=== PATIENT | female | born 1975 | race Two or more races ===

== ENCOUNTER 2017-11-14 12:08 | Outpatient (CLI) | payer OTHER | END 2017-11-14 15:00 | disposition home or self-care (01) | LOC: LAB 12:08 | DX: R10.84 Generalized abdominal pain (principal); K52.9 Noninfective gastroenteritis and colitis, unspecified ==

== ENCOUNTER 2017-11-14 13:03 | Outpatient (CLI) | payer OTHER | END 2017-11-14 13:17 | disposition home or self-care (01) | LOC: SONOGRAMA 13:03 | DX: R10.84 Generalized abdominal pain (principal) ==

== ENCOUNTER → 2017-12-11 | Outpatient (CLI) | payer OTHER | END | disposition home or self-care (01) | LOC: TOM 07:45 | DX: I88.0 Nonspecific mesenteric lymphadenitis (principal); R10.84 Generalized abdominal pain ==